=== PATIENT | female | born 1930 | race Caucasian/White ===

== ENCOUNTER 2016-11-29 12:35 | Emergency (ER) | payer OTHER ==
--- NOTE | 2016-11-29 13:41 | DIAGNOSTIC IMAGING REPORT ---
PROCEDURE: XR CHEST 1 VIEW INDICATION: DIZZY TECHNIQUE: Portable AP view 01:25 p.m. COMPARISON: None. FINDINGS: Lungs are clear. Heart and mediastinum are normal. Thorax is normal. IMPRESSION: 1. Negative chest.
--- NOTE | 2016-11-29 13:59 | DIAGNOSTIC IMAGING REPORT ---
PROCEDURE: CT HEAD WITHOUT CONTRAST INDICATION: DIZZINESS TECHNIQUE: Axial CT images were acquired through the head. Coronal and sagittal reformations were created. COMPARISON: None. FINDINGS: Mild cerebral cortical atrophy. Minimal hypodensity in the periventricular and subcortical white matter. No intracranial hemorrhage or extraaxial fluid collections. Ventricles are normal in size, shape and position. There is no mass, mass effect or midline shift. The smith-white matter differentiation is normal. The calvarium is intact. The paranasal sinuses and mastoid air cells are normally aerated. The extracranial soft tissues and orbits are normal. IMPRESSION: 1. No CT evidence of acute intracranial process. 2. Age related involutional and white matter changes. 3. Findings discussed with Dr. Phillips at 02:[address] scans at this facility use dose modulation, iterative reconstruction, and/or weight-based dosing when appropriate to reduce radiation dose to as low as reasonably achievable.
--- NOTE | 2016-11-29 14:40 | ED CLINICAL REPORT ---
Clinical Report - Physicians/Mid Levels [facility] [address] [place] [address] 11/29/2016 12:36 Patient: HIMANSHU ROBERSON Time Seen: 13:06. Arrived- By ambulance. Historian- patient and EMS personnel. HISTORY OF PRESENT ILLNESS Chief Complaint: FALL. The injury occurred last night. Occurred at a alf. Fell out of bed and landed on the ground; lost balance. The patient denies pain. The patient sustained a blow to the head. No neck pain or loss of consciousness. Not dazed. REVIEW OF SYSTEMS All systems otherwise negative, except as recorded above. PAST HISTORY Problems: Insomnia. Restless Legs Syndrome. Additional Surgeries: Appendectomy. Hysterectomy. Medications: Call [employer] in [place]. Allergies: Demerol-GI upset. Sulfa- mouth ulcers. SOCIAL HISTORY Never smoker. No alcohol use or drug use. Resides in a shelter home. FAMILY HISTORY Cancer in first-degree relative (mother). ADDITIONAL NOTES The nursing notes have been reviewed. PHYSICAL EXAM Vital Signs: 11/29/2016 12:50 BP: 132/60. HR: 70. RR: 18. O2 saturation: 97%. Temp: 98.2 F. Pain level now: 4/10. Have been reviewed. Appearance: Alert. Head: Head non-tender. No swelling of head. Eyes: Pupils equal, round and reactive to light. EOM intact. ENT: No dental injury. Pharynx normal. Neck: Painless ROM. Non-tender. CVS: Heart sounds normal. Pulses normal. Respiratory: Breath sounds normal. Abdomen: No visible injury. Soft and nontender. Bowel sounds normal. No organomegaly. No mass. Back: No tenderness. ROM normal. No tenderness or vertebral point tenderness. Skin: Skin intact. Skin warm and dry. Normal skin color. Normal skin turgor. Extremities: Normal inspection. Pelvis stable. Extremities atraumatic. No lower extremity edema. Neuro: Oriented X 3. No motor deficit. No sensory deficit. LABS, X-RAYS, AND EKG EKG: Normal sinus rhythm. Rate: 70. Nondiagnostic Q waves in lead V1 and V2. Left axis deviation. Prior EKG unavailable. The study has been independently viewed by me. CT Head: No acute disease. Laboratory Tests: UA-Culture if indicated: (JEFERSON: 11/29/2016 13:10) ( MsgRcvd 11/29/2016 13:38) Final results Test Result Flag Units (Reference) URINE COLOR YELLOW URINE APPEARANCE CLEAR URINE GLUCOSE NEGATIVE (NEGATIVE) URINE BILIRUBIN NEGATIVE (NEGATIVE) URINE KETONE NEGATIVE (NEGATIVE) URINE SPECIFIC GRAVITY 1.025 (1.010-1.030) URINE PH 5.5 (5.0-8.0) URINE PROTEIN NEGATIVE (NEGATIVE) URINE UROBILINOGEN 0.2 EU/dL (0.2-1.0) URINE NITRITE NEGATIVE (NEGATIVE) URINE BLOOD NEGATIVE (NEGATIVE) URINE LEUK ESTERASE NEGATIVE (NEGATIVE) URINE RBC NONE SEEN rbc/hpf (0-1) URINE WBC 0-1 wbc/hpf (0-1) URINE EPITHELIAL CELLS 0-1 EPI/hpf (0-5) URINE BACTERIA TRACE (<1+) (NONE SEEN) URINE COMMENT CULT NOT INDICATED URINE CULTURES ARE SET-UP BASED ON THE FOLLOWING CRITERIA:POSITIVE NITRITEPOSITIVE LEUKOCYTE ESTERASEGREATER THAN 10 WHITE BLOOD CELLSMODERATE (2+) OR GREATER BACTERIA CBC w Diff: (JEFERSON: 11/29/2016 13:20) ( MsgRcvd 11/29/2016 13:48) Final results Test Result Flag Units (Reference) WHITE BLOOD COUNT 7.9 K/uL (4.5-11.5) RED BLOOD COUNT 3.99 L M/uL (4.00-5.20) HEMOGLOBIN 12.7 gm/dL (12.0-16.0) HEMATOCRIT 37.8 % (36.0-46.0) MEAN CELL VOLUME 95 fL (80-100) MEAN CORPUSCULAR HGB 32 pg (26-34) MEAN CORPUSCULAR HGB CONC 34 g/dL (31-37) RED CELL DISTRIBUTION WIDTH 14.4 % (11.6-14.8) PLATELET COUNT 300 K/uL (150-400) NEUTROPHIL % 74.3 % (50-75) LYMPH % 19.8 L % (25-40) MONO % 4.3 % (3-14) EOSINOPHIL % 1.3 % (0-4) BASOPHIL % 0.3 % (0-2) BNP: (JEFERSON: 11/29/2016 13:20) ( MsgRcvd 11/29/2016 14:10) Final results Test Result Flag Units (Reference) B-TYPE NATRIURETIC PEPTIDE 45.0 pg/ml (5-100) CMP: (JEFERSON: 11/29/2016 13:20) ( MsgRcvd 11/29/2016 14:15) Final results Test Result Flag Units (Reference) GLUCOSE 107 mg/dL (70-110) BUN 26 H mg/dL (7-18) CREATININE 1.3 mg/dL (0.6-1.3) Estimated GFR 41.09 mL/min Estimated GFR- 49.80 mL/min Note: Persistent reduction over 3 months in eGFR<60 mL/min/1.73 m2 defines CKD. Patients with eGFR values>=60 mL/min/1.73 m2 may also have CKD if evidence ofpersistent proteinuria. Additional information may be foundat www.kidney.org. SODIUM 142 mmol/L (136-145) POTASSIUM 3.7 mmol/L (3.5-5.1) CHLORIDE 105 mmol/L (98-107) CARBON DIOXIDE 23 mmol/L (21-32) CALCIUM 8.6 mg/dL (8.5-10.1) TOTAL PROTEIN 7.8 g/dL (6.4-8.2) ALBUMIN 4.1 g/dL (3.3-5.0) BILIRUBIN, TOTAL 0.6 mg/dL (0.0-1.0) ALKALINE PHOSPHATASE 83 U/L (46-116) AST (SGOT) 23 U/L (15-37) ALT (SGPT) 14 U/L (12-78) LIPASE 566 H U/L (73-393) AMYLASE 107 U/L (25-115) CPK 121 U/L (24-260) TROPONIN I <0.05 L ng/mL (0.00-1.5) TROPONIN REFERENCE RANGE:<0.1 NEGATIVE0.1-1.5 INDETERMINANT>1.5 POSITIVE . PROGRESS AND PROCEDURES Course of Care: Patient is stable. Patient/family counseled. Old medical records ordered. Disposition: Discharged. Condition: stable. CLINICAL IMPRESSION Contusion to the head. Fall. INSTRUCTIONS Warnings: GENERAL WARNINGS: Return or contact your physician immediately if your condition worsens or changes unexpectedly, if not improving as expected, or if other problems arise. Follow-up: Follow up with your doctor as needed. Understanding of the discharge instructions verbalized by patient. (Electronically signed by Vinay Phillips MD 11/29/2016 17:43)
--- NOTE | 2016-11-29 14:40 | ED ORDER SUMMARY ---
..... Patient: HIMANSHU ROBERSON OrderSheet [facility] VisitID: [id number] [place] [address] 86y, F Registration Date/Time: 11/29/2016 ORDER SHEET Weight: 47.1 kg (stated) Allergies: Demerol-GI upset, Sulfa- mouth ulcers GENERAL ORDERS: Chest 1V Urgent (13:07 11/29/2016 Didier GARCIA) (Ack 13:14 Nataly Layton) (14:13 DDean R.N.) Ase Certified Technician (Continuous) (13:07 11/29/2016 Didier GARCIA) (14:13 DDean R.N.) CT Head wo Cont Urgent (13:07 11/29/2016 Didier GARCIA) (Ack 13:14 Nataly [place]) (14:13 DDean R.N.) CBC w Diff Urgent (13:07 11/29/2016 Didier GARCIA) (Ack 13:14 Nataly [place]) (14:13 DDean R.N.) CMP Urgent (13:07 11/29/2016 Didier GARCIA) (Ack 13:14 Nataly [place]) (14:13 DDean R.N.) UA-Culture if indicated Urgent (13:07 11/29/2016 Didier GARCIA) (Ack 13:14 Nataly [place]) (14:13 DDean R.N.) Amylase Urgent (13:07 11/29/2016 Didier GARCIA) (Ack 13:14 Nataly [place]) (14:13 DDean R.N.) Lipase Urgent (13:07 11/29/2016 Didier GARCIA) (Ack 13:14 Nataly [place]) (14:13 DDean R.N.) CPK Urgent (13:07 11/29/2016 Didier GARCIA) (Ack 13:14 Nataly [place]) (14:13 DDean R.N.) Troponin-I Urgent (13:07 11/29/2016 Didier GARCIA) (Ack 13:14 Nataly [place]) (14:13 DDean R.N.) BNP Urgent (13:07 11/29/2016 Didier GARCIA) (Ack 13:14 PWeiler ER Tech1) (14:13 DDean R.N.) Pulse oximeter (13:07 11/29/2016 Didier GARCIA) (14:13 DDean R.N.) EKG - ER Stat (13:07 11/29/2016 Didier GARCIA) (13:07 LNations ER Tech1) Vitals - Orthostatic (13:07 11/29/2016 Didier GARCIA) (14:13 DDean R.N.) MEDICATION ORDERS: Tdap IM 0.5 mL (NOW, per protocol) (16:32 11/29/2016 DDean R.N. per protocol) (16:34 DDean R.N.) IV FLUIDS: IV Saline Lock (13:07 11/29/2016 Didier GARCIA) (Ack 14:13 DDean R.N.) (14:25 DDean R.N.) ORDER SHEET NOTES: [Electronically signed by Yessica Randhawa R.N. (16:36 11/29/2016)] [Electronically signed by Vinay Phillips MD (17:43 11/29/2016)] [Electronically locked/signed by Yessica Randhawa R.N. (16:36 11/29/2016)]
--- NOTE | 2016-11-29 14:40 | ED NURSING NOTES ---
Clinical Report - Nurses [facility] [address] [place] [address] 11/29/2016 12:36 Patient: HIMANSHU ROBERSON TRIAGE Triage time 1250. Acuity: LEVEL 3. Chief Complaint: FALL (pt fell last night- after awaking in night due to leg cramps, starting to get out of bed and fell hit back pf head on bedstand. NO LOC, but c/o dizziness today). 12:50. CHICO COMA SCORE: [place] Coma Scale: 15- eyes open spontaneously (4); best verbal response- oriented x 4 (5); best motor response- obeys commands (6). --14:22 Yessica Randhawa R.N. 12:50 11/29/16. BP: 132/60. HR: 70. RR: 18. O2 saturation: 97% on room air. Temp: 98.2 F. Pain level now: 08/27. --14:22 Yessica Randhawa R.N. Weight: 47.1 kg stated. Height/Length: 60 inches Per Patient. BMI: 20.3. --12:58 Yessica Randhawa R.N. Medications Call airam in [place]. --13:01 Yessica Randhawa R.N. Allergies Demerol-GI upset. --13:00 Yessica Randhawa R.N. Sulfa- mouth ulcers. --13:00 Yessica Randhawa R.N. History Arrived by EMS. Historian: patient. Unaccompanied. This occurred last night. ( pt also has small abrasions to left elbow, knee and ankle). She has had dizziness. No loss of consciousness. No alteration in mental status, neck pain, extremity pain or back pain. SOCIAL HX: Never smoker. No alcohol use or drug use. --14:22 Yessica Randhawa R.N. Interventions ID band on patient. To treatment room. --14:22 Yessica Randhawa R.N. PHYSICAL ASSESSMENT 12:50. Ambulatory to room. Patient gowned. GENERAL / NEURO / PSYCH: Alert. Oriented X 4. Appears in no acute distress. HEENT: ( hit occipital skull). RESPIRATORY: Respirations not labored. CVS: Normal heart rate and rhythm. GI / : Abdomen soft. EXTREMITIES: Extremities exhibit normal ROM. Right elbow: abrasion. Right knee: abrasion. Right ankle: abrasion. SKIN: Skin is warm and dry. --13:04 Yessica Randhawa R.N. NURSING PROGRESS NOTES 12:50. Cold pack applied. Patient gowned. Reassurance given. Patient identifiers checked. Call light placed in reach. Side rails up. Bed placed in lowest position. Patient ready for evaluation- chart flagged. --13:03 Yessica Randhawa R.N. 03:20 11/29/2016 Site #1 started via IV in the right antecubital space with an 20g angiocath, with aseptic technique and good blood return; one attempt. Blood drawn: rainbow set. Labeled in the presence of the patient and sent to the lab. Saline lock flushed with 10 mL saline. --14:15 Yessica Randhawa R.N. 13:07 11/29/16. ( Pt ambulated to bathroom, steady on feet UA obtained and sent to lab). --13:07 Yessica Randhawa R.N. 13:10. Portable chest x-ray ordered, performed and shown to the ED physician. --14:18 Yessica Randhawa R.N. 13:20 IV started and blood drawn. --14:18 Yessica Randhawa R.N. 13:40. Patient transported to CT by stretcher with tech. --14:19 Yessica Randhawa R.N. 13:55. Patient returned from CT by stretcher with tech. --14:19 Yessica Randhawa R.N. 13:30 11/29/16. BP: 136/45. HR: 72. RR: 18. O2 saturation: 98%. Temp: deferred. Pain level now: 4/10. Additional comments: 136/45 flat, 135/65 sitting, 133/56 standing HR 72 flat, 74 sitting, 76 standing . --14:24 Yessica Randhawa R.N. 14:30 pt resting quelty, in no acute distress. waiting for Ct results. --16:32 Yessica Randhawa R.N. 15:00 11/29/2016 TDAP IM 0.5 mL given. 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 Given in the left deltoid. Vaccine information statement provided to the patient. --16:34 Yesisca Randhawa R.N. 15:00 Pt assisted with dressing, out to waiting room via, waiting for bus to take her home. --16:35 Yessica Randhawa R.N. 14:50 11/29/2016 Site #1 removed upon discharge. Bandaid applied. --16:35 Yessica Randhawa R.N. 14:50 11/29/2016 IV Saline Lock Drip IV Discontinued: upon discharge. Total amount infused: 0 mL. IV patency established. IV site checked: no pain, redness, or swelling. IV flushed thoroughly. --16:36 Yessica Randhawa R.N. DISPOSITION / DISCHARGE 15:10. Condition at departure: improved and stable. No learning barriers present. Discharge instructions provided and reviewed with the patient. Reviewed medication(s) (tylenol or motrin). Patient verbalized understanding. Written instructions provided in Turkish. The patient was discharged home. She left the Emergency Department ambulatory and via ([employer] bus). --16:31 Yessica Randhawa R.N. 15:10 11/29/16. BP: 130/64. HR: 70. RR: 18. O2 saturation: 98%. Temp: deferred. Pain level now: 08/27. --16:31 Yessica Randhawa R.N. Locked/Released at 11/29/2016 16:36 by Yessica Randhawa R.N.
--- NOTE | 2016-11-29 14:40 | ED ORDER SUMMARY ---
..... Patient: HIMANSHU ROBERSON OrderSheet [facility] VisitID: [id number] [place] [address] 86y, F Registration Date/Time: 11/29/2016 ORDER SHEET Weight: 47.1 kg (stated) Allergies: Demerol-GI upset, Sulfa- mouth ulcers GENERAL ORDERS: Chest 1V Urgent (13:07 11/29/2016 Didier GARCIA) (Ack 13:14 Nataly Layton) (14:13 DDean R.N.) Shot Bagger (Continuous) (13:07 11/29/2016 Didier GARCIA) (14:13 DDean R.N.) CT Head wo Cont Urgent (13:07 11/29/2016 Didier GARCIA) (Ack 13:14 Nataly Layton) (14:13 DDean R.N.) CBC w Diff Urgent (13:07 11/29/2016 Didier GARCIA) (Ack 13:14 Nataly Layton) (14:13 DDean R.N.) CMP Urgent (13:07 11/29/2016 Didier GARCIA) (Ack 13:14 Nataly Layton) (14:13 DDean R.N.) UA-Culture if indicated Urgent (13:07 11/29/2016 Didier GARCAI) (Ack 13:14 Nataly Layton) (14:13 DDean R.N.) Amylase Urgent (13:07 11/29/2016 Didier GARCIA) (Ack 13:14 Nataly Layton) (14:13 DDean R.N.) Lipase Urgent (13:07 11/29/2016 Didier GARCIA) (Ack 13:14 Nataly Layton) (14:13 DDean R.N.) CPK Urgent (13:07 11/29/2016 Didier GARCIA) (Ack 13:14 Nataly Layton) (14:13 DDean R.N.) Troponin-I Urgent (13:07 11/29/2016 Didier GARCIA) (Ack 13:14 Nataly Layton) (14:13 DDean R.N.) BNP Urgent (13:07 11/29/2016 Didier GARCIA) (Ack 13:14 PWeiler ER Tech1) (14:13 DDean R.N.) Pulse oximeter (13:07 11/29/2016 Didier GARCIA) (14:13 DDean R.N.) EKG - ER Stat (13:07 11/29/2016 Didier GARCIA) (13:07 LNations ER Tech1) Vitals - Orthostatic (13:07 11/29/2016 Didier GARCIA) (14:13 DDean R.N.) MEDICATION ORDERS: Tdap IM 0.5 mL (NOW, per protocol) (16:32 11/29/2016 DDean R.N. per protocol) (16:34 DDean R.N.) IV FLUIDS: IV Saline Lock (13:07 11/29/2016 Didier GARCIA) (Ack 14:13 DDean R.N.) (14:25 DDean R.N.) ORDER SHEET NOTES: [Electronically signed by Yessica Randhawa R.N. (16:36 11/29/2016)] [Electronically signed by Vinay Phillips MD (17:43 11/29/2016)] [Electronically locked/signed by Yessica Randhawa R.N. (16:36 11/29/2016)]
--- NOTE | 2016-11-29 14:40 | ED NURSING NOTES ---
Clinical Report - Nurses [facility] [address] [place] [address] 11/29/2016 12:36 Patient: HIMANSHU ROBERSON TRIAGE Triage time 1250. Acuity: LEVEL 3. Chief Complaint: FALL (pt fell last night- after awaking in night due to leg cramps, starting to get out of bed and fell hit back pf head on bedstand. NO LOC, but c/o dizziness today). 12:50. CHICO COMA SCORE: [place] Coma Scale: 15- eyes open spontaneously (4); best verbal response- oriented x 4 (5); best motor response- obeys commands (6). --14:22 Yessica Randhawa R.N. 12:50 11/29/16. BP: 132/60. HR: 70. RR: 18. O2 saturation: 97% on room air. Temp: 98.2 F. Pain level now: 08/27. --14:22 Yessica Randhawa R.N. Weight: 47.1 kg stated. Height/Length: 60 inches Per Patient. BMI: 20.3. --12:58 Yessica Randhawa R.N. Medications Call airam in [place]. --13:01 Yessica Randhawa R.N. Allergies Demerol-GI upset. --13:00 Yessica Randhawa R.N. Sulfa- mouth ulcers. --13:00 Yessica Randhawa R.N. History Arrived by EMS. Historian: patient. Unaccompanied. This occurred last night. ( pt also has small abrasions to left elbow, knee and ankle). She has had dizziness. No loss of consciousness. No alteration in mental status, neck pain, extremity pain or back pain. SOCIAL HX: Never smoker. No alcohol use or drug use. --14:22 Yessica Randhawa R.N. Interventions ID band on patient. To treatment room. --14:22 Yessica Randhawa R.N. PHYSICAL ASSESSMENT 12:50. Ambulatory to room. Patient gowned. GENERAL / NEURO / PSYCH: Alert. Oriented X 4. Appears in no acute distress. HEENT: ( hit occipital skull). RESPIRATORY: Respirations not labored. CVS: Normal heart rate and rhythm. GI / : Abdomen soft. EXTREMITIES: Extremities exhibit normal ROM. Right elbow: abrasion. Right knee: abrasion. Right ankle: abrasion. SKIN: Skin is warm and dry. --13:04 Yessica Randhawa R.N. NURSING PROGRESS NOTES 12:50. Cold pack applied. Patient gowned. Reassurance given. Patient identifiers checked. Call light placed in reach. Side rails up. Bed placed in lowest position. Patient ready for evaluation- chart flagged. --13:03 Yessica Randhawa R.N. 03:20 11/29/2016 Site #1 started via IV in the right antecubital space with an 20g angiocath, with aseptic technique and good blood return; one attempt. Blood drawn: rainbow set. Labeled in the presence of the patient and sent to the lab. Saline lock flushed with 10 mL saline. --14:15 Yessica Randhawa R.N. 13:07 11/29/16. ( Pt ambulated to bathroom, steady on feet UA obtained and sent to lab). --13:07 Yessica Randhawa R.N. 13:10. Portable chest x-ray ordered, performed and shown to the ED physician. --14:18 Yessica Randhawa R.N. 13:20 IV started and blood drawn. --14:18 Yessica Randhawa R.N. 13:40. Patient transported to CT by stretcher with tech. --14:19 Yessica Randhawa R.N. 13:55. Patient returned from CT by stretcher with tech. --14:19 Yessica Randhawa R.N. 13:30 11/29/16. BP: 136/45. HR: 72. RR: 18. O2 saturation: 98%. Temp: deferred. Pain level now: 4/10. Additional comments: 136/45 flat, 135/65 sitting, 133/56 standing HR 72 flat, 74 sitting, 76 standing . --14:24 Yessica Randhawa R.N. 14:30 pt resting quelty, in no acute distress. waiting for Ct results. --16:32 Yessica Randhawa R.N. 15:00 11/29/2016 TDAP IM 0.5 mL given. 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 Given in the left deltoid. Vaccine information statement provided to the patient. --16:34 Yessica Randhawa R.N. 15:00 Pt assisted with dressing, out to waiting room via, waiting for bus to take her home. --16:35 Yessica Randhawa R.N. 14:50 11/29/2016 Site #1 removed upon discharge. Bandaid applied. --16:35 Yessica Randhawa R.N. 14:50 11/29/2016 IV Saline Lock Drip IV Discontinued: upon discharge. Total amount infused: 0 mL. IV patency established. IV site checked: no pain, redness, or swelling. IV flushed thoroughly. --16:36 Yessica Randhawa R.N. DISPOSITION / DISCHARGE 15:10. Condition at departure: improved and stable. No learning barriers present. Discharge instructions provided and reviewed with the patient. Reviewed medication(s) (tylenol or motrin). Patient verbalized understanding. Written instructions provided in Korean. The patient was discharged home. She left the Emergency Department ambulatory and via ([employer] bus). --16:31 Yessica Randhawa R.N. 15:10 11/29/16. BP: 130/64. HR: 70. RR: 18. O2 saturation: 98%. Temp: deferred. Pain level now: 08/27. --16:31 Yessica Randhawa R.N. Locked/Released at 11/29/2016 16:36 by Yessica Randhawa R.N.
--- NOTE | 2016-11-29 14:40 | ED CLINICAL REPORT ---
Clinical Report - Physicians/Mid Levels [facility] [address] [place] [address] 11/29/2016 12:36 Patient: HIMANSHU ROBERSON Time Seen: 13:06. Arrived- By ambulance. Historian- patient and EMS personnel. HISTORY OF PRESENT ILLNESS Chief Complaint: FALL. The injury occurred last night[place] Fell out of bed and landed on the ground; lost balance. The patient denies pain. The patient sustained a blow to the head. No neck pain or loss of consciousness. Not dazed. REVIEW OF SYSTEMS All systems otherwise negative, except as recorded above. PAST HISTORY Problems: Insomnia. Restless Legs Syndrome. Additional Surgeries: Appendectomy. Hysterectomy. Medications: Call [employer] in [place]. Allergies: Demerol-GI upset. Sulfa- mouth ulcers. SOCIAL HISTORY Never smoker. No alcohol use or drug use. Resides in a assisted home. FAMILY HISTORY Cancer in first-degree relative (mother). ADDITIONAL NOTES The nursing notes have been reviewed. PHYSICAL EXAM Vital Signs: 11/29/2016 12:50 BP: 132/60. HR: 70. RR: 18. O2 saturation: 97%. Temp: 98.2 F. Pain level now: 4/10. Have been reviewed. Appearance: Alert. Head: Head non-tender. No swelling of head. Eyes: Pupils equal, round and reactive to light. EOM intact. ENT: No dental injury. Pharynx normal. Neck: Painless ROM. Non-tender. CVS: Heart sounds normal. Pulses normal. Respiratory: Breath sounds normal. Abdomen: No visible injury. Soft and nontender. Bowel sounds normal. No organomegaly. No mass. Back: No tenderness. ROM normal. No tenderness or vertebral point tenderness. Skin: Skin intact. Skin warm and dry. Normal skin color. Normal skin turgor. Extremities: Normal inspection. Pelvis stable. Extremities atraumatic. No lower extremity edema. Neuro: Oriented X 3. No motor deficit. No sensory deficit. LABS, X-RAYS, AND EKG EKG: Normal sinus rhythm. Rate: 70. Nondiagnostic Q waves in lead V1 and V2. Left axis deviation. Prior EKG unavailable. The study has been independently viewed by me. CT Head: No acute disease. Laboratory Tests: UA-Culture if indicated: (JEFERSON: 11/29/2016 13:10) ( MsgRcvd 11/29/2016 13:38) Final results Test Result Flag Units (Reference) URINE COLOR YELLOW URINE APPEARANCE CLEAR URINE GLUCOSE NEGATIVE (NEGATIVE) URINE BILIRUBIN NEGATIVE (NEGATIVE) URINE KETONE NEGATIVE (NEGATIVE) URINE SPECIFIC GRAVITY 1.025 (1.010-1.030) URINE PH 5.5 (5.0-8.0) URINE PROTEIN NEGATIVE (NEGATIVE) URINE UROBILINOGEN 0.2 EU/dL (0.2-1.0) URINE NITRITE NEGATIVE (NEGATIVE) URINE BLOOD NEGATIVE (NEGATIVE) URINE LEUK ESTERASE NEGATIVE (NEGATIVE) URINE RBC NONE SEEN rbc/hpf (0-1) URINE WBC 0-1 wbc/hpf (0-1) URINE EPITHELIAL CELLS 0-1 EPI/hpf (0-5) URINE BACTERIA TRACE (<1+) (NONE SEEN) URINE COMMENT CULT NOT INDICATED URINE CULTURES ARE SET-UP BASED ON THE FOLLOWING CRITERIA:POSITIVE NITRITEPOSITIVE LEUKOCYTE ESTERASEGREATER THAN 10 WHITE BLOOD CELLSMODERATE (2+) OR GREATER BACTERIA CBC w Diff: (JEFERSON: 11/29/2016 13:20) ( MsgRcvd 11/29/2016 13:48) Final results Test Result Flag Units (Reference) WHITE BLOOD COUNT 7.9 K/uL (4.5-11.5) RED BLOOD COUNT 3.99 L M/uL (4.00-5.20) HEMOGLOBIN 12.7 gm/dL (12.0-16.0) HEMATOCRIT 37.8 % (36.0-46.0) MEAN CELL VOLUME 95 fL (80-100) MEAN CORPUSCULAR HGB 32 pg (26-34) MEAN CORPUSCULAR HGB CONC 34 g/dL (31-37) RED CELL DISTRIBUTION WIDTH 14.4 % (11.6-14.8) PLATELET COUNT 300 K/uL (150-400) NEUTROPHIL % 74.3 % (50-75) LYMPH % 19.8 L % (25-40) MONO % 4.3 % (3-14) EOSINOPHIL % 1.3 % (0-4) BASOPHIL % 0.3 % (0-2) BNP: (JEFERSON: 11/29/2016 13:20) ( MsgRcvd 11/29/2016 14:10) Final results Test Result Flag Units (Reference) B-TYPE NATRIURETIC PEPTIDE 45.0 pg/ml (5-100) CMP: (JEFERSON: 11/29/2016 13:20) ( MsgRcvd 11/29/2016 14:15) Final results Test Result Flag Units (Reference) GLUCOSE 107 mg/dL (70-110) BUN 26 H mg/dL (7-18) CREATININE 1.3 mg/dL (0.6-1.3) Estimated GFR 41.09 mL/min Estimated GFR- 49.80 mL/min Note: Persistent reduction over 3 months in eGFR<60 mL/min/1.73 m2 defines CKD. Patients with eGFR values>=60 mL/min/1.73 m2 may also have CKD if evidence ofpersistent proteinuria. Additional information may be foundat www.kidney.org. SODIUM 142 mmol/L (136-145) POTASSIUM 3.7 mmol/L (3.5-5.1) CHLORIDE 105 mmol/L (98-107) CARBON DIOXIDE 23 mmol/L (21-32) CALCIUM 8.6 mg/dL (8.5-10.1) TOTAL PROTEIN 7.8 g/dL (6.4-8.2) ALBUMIN 4.1 g/dL (3.3-5.0) BILIRUBIN, TOTAL 0.6 mg/dL (0.0-1.0) ALKALINE PHOSPHATASE 83 U/L (46-116) AST (SGOT) 23 U/L (15-37) ALT (SGPT) 14 U/L (12-78) LIPASE 566 H U/L (73-393) AMYLASE 107 U/L (25-115) CPK 121 U/L (24-260) TROPONIN I <0.05 L ng/mL (0.00-1.5) TROPONIN REFERENCE RANGE:<0.1 NEGATIVE0.1-1.5 INDETERMINANT>1.5 POSITIVE . PROGRESS AND PROCEDURES Course of Care: Patient is stable. Patient/family counseled. Old medical records ordered. Disposition: Discharged. Condition: stable. CLINICAL IMPRESSION Contusion to the head. Fall. INSTRUCTIONS Warnings: GENERAL WARNINGS: Return or contact your physician immediately if your condition worsens or changes unexpectedly, if not improving as expected, or if other problems arise. Follow-up: Follow up with your doctor as needed. Understanding of the discharge instructions verbalized by patient. (Electronically signed by Vinay Phillips MD 11/29/2016 17:43)
--- NOTE | 2016-11-29 17:44 | ED DISCHARGE INSTRUCTIONS ---
Patient: HIMANSHU ROBERSON General Instructions [facility] VisitID: [id number] [place] [address] 86y, F Registration Date/Time: 11/29/2016 Contusion to the head. Fall. INSTRUCTIONS Warnings: GENERAL WARNINGS: Return or contact your physician immediately if your condition worsens or changes unexpectedly, if not improving as expected, or if other problems arise. Follow-up: Follow up with your doctor as needed. Understanding of the discharge instructions verbalized by patient. ADDITIONAL INFORMATION Mechanical Fall You have had a fall today. It appears that the cause is mechanical. That means that you slipped, tripped or lost your balance. If your fall had been due to fainting or a seizure, further tests would be required. Home Care: Rest today and resume your normal activities when you are feeling back to normal. If you were injured during the fall, follow the advice from your doctor regarding care of your injury. You may use acetaminophen (Tylenol) or ibuprofen (Motrin, Advil) to control pain, unless another pain medicine was prescribed. [NOTE: If you have chronic liver or kidney disease or ever had a stomach ulcer or GI bleeding, talk with your doctor before using these medicines.] Fall Prevention: Was there anything that caused your fall that can be fixed, removed, or replaced? Make your home safe by keeping walkways clear of objects you may trip over. Use non-slip pads under rugs. Do not walk in poorly lit areas. Do not stand on chairs or wobbly ladders. Use caution when reaching overhead or looking upward. This position can cause a loss of balance. Be sure your shoes fit properly, have non-slip bottoms and are in good condition. Be cautious when going up and down curbs, and walking on uneven sidewalks. If your balance is poor, consider using a cane or walker. Stay as active as you can. Balance, flexibility, strength, and endurance all come from exercise. They all play a role in preventing falls. Follow Up with your doctor or as advised by our staff. Get Prompt Medical Attention if any of the following occur: Repeated mechanical falls, or unexplained falls Dizziness, fainting or seizure Severe headache Chest pain or shortness of breath Palpitations (very rapid or very slow or irregular heartbeat) Blood in vomit, stools (black or red color) Weakness of an arm or leg or one side of the face Difficulty with speech or vision Scalp Contusion [No Wake-Up] A scalp contusion is a bruise with swelling and sometimes bleeding under the skin. The swelling should start to go down within two days. Although there is no sign of a serious injury at this time, symptoms may appear later. These could be a sign of a more serious problem (bruising or bleeding in the brain). Therefore, watch for the warning signs below. Home Care: During the next 24 hours someone must stay with you to check for the signs below. It is not necessary to stay awake or be awakened during the night. If you have swelling of the face or scalp, apply an ice pack (ice cubes in a plastic bag, wrapped in a towel) for 20 minutes. Do this every 1-2 hours until the swelling starts to go down. You may use acetaminophen (Tylenol) or ibuprofen (Motrin, Advil) to control pain, unless another pain medicine was prescribed. [ NOTE : If you have chronic liver or kidney disease or ever had a stomach ulcer or GI bleeding, talk with your doctor before using these medicines.] For the next 24 hours: Do not take alcohol, sedatives or medicines that make you sleepy. Do not drive or operate machinery. Avoid strenuous activities. No lifting or straining. If you have had any symptoms of a concussion today (nausea, vomiting, dizziness, confusion, headache, memory loss or if you were knocked out), do not return to sports or any activity that could result in another head injury until all symptoms are gone and you have been cleared by your doctor. A second head injury before fully recovering from the first one can lead to serious brain injury. Follow Up with your doctor if symptoms are not improving after 24 hours, or as directed. [NOTE: Any X-rays or CT scans taken will be reviewed by a radiologist. You will be notified of any new findings that may affect your care.] Get Prompt Medical Attention if any of the following occur: Repeated vomiting Severe or worsening headache or dizziness Unusual drowsiness, or unable to awaken as usual Confusion or change in behavior or speech, memory loss, blurred vision Convulsion (seizure) Increasing scalp or face swelling Redness, warmth or pus from the swollen area Fluid drainage or bleeding from the nose or ears Fever of 100.4F(38C) or higher, or as directed by your healthcare provider You have been given the following additional information: Fall, Mechanical Scalp Contusion, No Wake Up (Electronically signed by Vinay Phillips MD 11/29/2016 17:43)
--- NOTE | 2016-11-29 17:44 | ED MAR SUMMARY ---
..... Medication Administration Record [facility] [address] [place] [address] Patient: HIMANSHU ROBERSON Visit ID: [id number] 86y, F Weight: 47.1 kg Height/Length: 60 in BMI: 20.3 ALLERGIES: Sulfa- mouth ulcers, Demerol-GI upset Given 15:00 11/29/2016 Edis, Yessica REladioN. Medication Administered: TDAP [IM], Dose: 0.5 mL IM. Medication Ordered: Tdap IM 0.5 mL (NOW, per protocol).
--- NOTE | 2016-11-29 17:44 | ED MED RECONCILIATION SUMMARY ---
Patient: HIMANSHU ROBERSON Medication Reconciliation Report [facility] VisitID: [id number] [address] [place] [address] 86y, F Registration Date/Time: 11/29/2016 Weight: 47.1 kg Height/Length: 60 in. BMI: 20.3 ALLERGIES: Demerol-GI upset, Sulfa- mouth ulcers The patient's Home Medications are listed below: THE FOLLOWING MEDICATIONS NEED TO BE RECONCILED: Call [employer] in [place] The source(s) of the original Home Medication information: Not obtained. The following Medications were given to the patient in the Emergency Department: TDAP [IM] IM 0.5 mL, administered: 11/29/2016 3:00:00 PM The following Medications were prescribed to the patient: None.
--- NOTE | 2016-11-29 17:44 | ED MED RECONCILIATION SUMMARY ---
Patient: HIMANSHU ROBERSON Medication Reconciliation Report [facility] VisitID: [id number] [address] [place] [address] 86y, F Registration Date/Time: 11/29/2016 Weight: 47.1 kg Height/Length: 60 in. BMI: 20.3 ALLERGIES: Demerol-GI upset, Sulfa- mouth ulcers The patient's Home Medications are listed below: THE FOLLOWING MEDICATIONS NEED TO BE RECONCILED: Call [employer] in [place] The source(s) of the original Home Medication information: Not obtained. The following Medications were given to the patient in the Emergency Department: TDAP [IM] IM 0.5 mL, administered: 11/29/2016 3:00:00 PM The following Medications were prescribed to the patient: None.
--- NOTE | 2016-11-29 17:44 | ED MAR SUMMARY ---
..... Medication Administration Record [facility] [address] [place] [address] Patient: HIMANSHU ROBERSON Visit ID: [id number] 86y, F Weight: 47.1 kg Height/Length: 60 in BMI: 20.3 ALLERGIES: Sulfa- mouth ulcers, Demerol-GI upset Given 15:00 11/29/2016 Edis, Yessica REladioN. Medication Administered: TDAP [IM], Dose: 0.5 mL IM. Medication Ordered: Tdap IM 0.5 mL (NOW, per protocol).
== END 2016-11-29 15:10 | disposition home or self-care (01) ==
LOC: ED SRH 12:35
DX: S00.93XA Contusion of unspecified part of head, initial encounter (principal); W06.XXXA Fall from bed, initial encounter; Y92.122 Bedroom in nursing home as the place of occurrence of the external cause
CPT/HCPCS: 90004; 90100; 90616; 91320; 92235; 92530; 92610; 95059